=== PATIENT | male | born 1965 | race African-American/Black ===

== ENCOUNTER 2017-07-14 12:16 | Emergency (ER) | payer SELFPAY ==
[~2017-07-14] VITALS: Ht 162.6 cm; Wt 91.0 kg
[2017-07-14 13:31] LABS: CHLORIDE 103 mEq/L (98-107)
[2017-07-14 13:32] LABS: HEMATOCRIT. 42.1 % (42.0-52.0); HEMOGLOBIN. 14.5 g/dL (14.0-18.0); MEAN CORPUSCULAR HEMOGLOBIN 29.6 pg (28.0-32.0); MEAN CORPUSCULAR VOLUME 86.1 fL (80.0-94.0); MEAN PLATELET VOLUME 8.3 fl (7.4-10.4); PLATELET 210 x1000/uL (130-400); RED BLOOD CELL COUNT 4.89 mill/uL (4.7-6.1); RED CELL DISTRIBUTION WIDTH 13.9 % (11.6-14.6)
[2017-07-14 13:33] LABS: PROTHROMBIN TIME 10.9 sec (9.4-11.6)
[2017-07-14 13:52] LABS: PLATELET ESTIMATE NORMAL
[2017-07-14] MEDS ORDERED: ACETAMINOPHEN WITH CODEINE 300/30MG TABLET PO ONE (14:30)
[2017-07-14 14:59] VITALS: BP 124/89
== END 2017-07-14 15:22 | disposition home or self-care (01) ==
LOC: ER 13:33
DX: R07.89 Other chest pain (principal)
CPT/HCPCS: 36415; 71045; 80053; 83880; 84484; 85025; 85610; 93005; 99285

== ENCOUNTER 2017-10-28 07:06 | Emergency (ER) | payer SELFPAY ==
[~2017-10-28] VITALS: Ht 165.1 cm; Wt 107.0 kg
[2017-10-28 07:28] VITALS: BP 132/77
[2017-10-28] MEDS ORDERED: IBUPROFEN 600MG TABLET PO ONE (08:00)
[2017-10-28] MEDS ORDERED: ACETAMINOPHEN 500MG TABLET PO ONE (08:00)
== END 2017-10-28 09:34 | disposition home or self-care (01) ==
LOC: ER 08:44
DX: L03.90 Cellulitis, unspecified (principal)
CPT/HCPCS: 99283

== ENCOUNTER 2017-11-05 05:42 | Emergency (ER) | payer SELFPAY ==
[~2017-11-05] VITALS: Ht 165.1 cm; Wt 103.0 kg
[2017-11-05 08:03] VITALS: BP 123/87
== END 2017-11-05 08:40 | disposition home or self-care (01) ==
LOC: ER 08:11
DX: Z48.00 Encounter for change or removal of nonsurgical wound dressing (principal); L02.415 Cutaneous abscess of right lower limb
CPT/HCPCS: 99283; Z7610

== ENCOUNTER 2019-02-12 01:41 | Emergency (ER) | payer SELFPAY ==
[~2019-02-12] VITALS: Ht 165.1 cm; Wt 102.0 kg
[2019-02-12] MEDS ORDERED: KETOROLAC 60MG/2ML VIAL IM ONE (02:15)
[2019-02-12 04:16] LABS: CLARITY URINE CLEAR (CLEAR); COLOR URINE YELLOW (YELLOW); KETONES URINE NEGATIVE (NEGATIVE); LEUKOCYTE ESTERASE URINE NEGATIVE (NEGATIVE); NITRITE URINE NEGATIVE (NEGATIVE); OCCULT BLOOD URINE NEGATIVE (NEGATIVE); PROTEIN URINE TRACE (NEGATIVE)
[2019-02-12 05:39] VITALS: BP 117/85
== END 2019-02-12 06:00 | disposition home or self-care (01) ==
LOC: ER 02:08
DX: M54.9 Dorsalgia, unspecified (principal)
CPT/HCPCS: 71045; 81003; 96372; 99283; J1885; Z7610; 99282; 99284